=== PATIENT | female | born 1995 | race Caucasian/White ===

== ENCOUNTER 2017-02-04 09:16 | Inpatient (IN) | payer MEDICAID ==
[2017-02-04] MEDS ORDERED: Sodium Chloride 0.9% 2.5 ML Syringe FLUSH PRN (09:49)
[2017-02-04] MEDS ORDERED: Water For Irrigation,Sterile 1,000 ML Container IRR PRN (09:49)
[2017-02-04] MEDS ORDERED: Sodium Chloride 0.9% 10 ML Syringe FLUSH PRN (09:49)
[2017-02-04] MEDS ORDERED: Misoprostol 200 MCG Tab PO PRN (09:49)
[2017-02-04] MEDS ORDERED: Methylergonovine 0.2 MG/1 ML Amp IM PRN (09:49)
[2017-02-04] MEDS ORDERED: Carboprost Tromethamine 250 MCG/1 ML Amp IM PRN (09:49)
[2017-02-04] MEDS ORDERED: Lidocaine 1% 50 ML MDV INJECT PRN (09:49)
[2017-02-04] MEDS ORDERED: Oxytocin/Lactated Ringers 30 UNIT/500 ML BAG IV SCH ×2 (10:00→13:00)
[2017-02-04] MEDS: Lactated Ringers 1,000 ML IV SCH ×3 (10:55→14:10)
[2017-02-04] MEDS: Butorphanol 1 MG/ML SDV IVPUSH PRN ×2 (10:57→13:02)
--- NOTE | 2017-02-04 13:22 | PCM.PREANE ---
Preanesthetic Assessment - Anesthesia/Transfusion/Family Hx Anesthesia History: No Prior Anesthesia - Review of Systems General: No Symptoms Pulmonary: No Symptoms Cardiovascular: No Symptoms Gastrointestinal: No symptoms Neurological: No Symptoms Other: Reports: None - Physical Assessment Height: 5 ft 1 in Weight: 53.977 kg ASA Class: 2 Mental Status: Alert & Oriented x3 Airway Class: Mallampati = 2 Dentition: Reports: Normal Dentition Thyro-Mental Finger Breadths: 3 Mouth Opening Finger Breadths: 3 ROM/Head Extension: Full Lungs: Clear to auscultation, Normal respiratory effort Cardiovascular: Regular Rate, Regular Rhythm - Lab Values: Laboratory Last Values WBC 11.10 K/uL (4.0-11.0) H 02/04/17 10:12 RBC 4.79 M/uL (4.30-5.90) 02/04/17 10:12 Hgb 12.7 g/dL (12.0-16.0) 02/04/17 10:12 Hct 40.1 % (36.0-46.0) 02/04/17 10:12 MCV 83.7 fL (80.0-98.0) 02/04/17 10:12 MCH 26.5 pg (27.0-32.0) L 02/04/17 10:12 MCHC 31.7 g/dL (31.0-37.0) 02/04/17 10:12 RDW Std Deviation 48.6 fl (28.0-62.0) 02/04/17 10:12 RDW Coeff of Reece 16 % (11.0-15.0) H 02/04/17 10:12 Plt Count 233 K/uL (150-400) 02/04/17 10:12 MPV 10.60 fL (7.40-12.00) 02/04/17 10:12 Nucleated RBC % 0.0 /100WBC 02/04/17 10:12 Nucleated RBCs # 0 K/uL 02/04/17 10:12 Blood Type O POSITIVE 02/04/17 10:12 Antibody Screen NEGATIVE 02/04/17 10:12 - Allergies Allergies/Adverse Reactions: Allergies Allergy/AdvReac Type Severity Reaction Status Date / Time No Known Allergies Allergy Verified 02/04/17 09:46 - Acknowledgements Anesthesia Type Planned: Epidural Pt an Appropriate Candidate for the Planned Anesthesia: Yes Alternatives and Risks of Anesthesia Discussed w Pt/Guardian: Yes Pt/Guardian Understands and Agrees with Anesthesia Plan: Yes PreAnesthesia Questionnaire HEENT History: Reports: None Cardiovascular History: Reports: None Respiratory History: Reports: None Gastrointestinal History: Reports: GERD Genitourinary History: Reports: None FRENCH WEAVER History: Reports: : 1 Para: 0 LMP (Approximate): Musculoskeletal History: Reports: None Neurological History: Reports: None Psychiatric History: Reports: None Endocrine/Metabolic History: Reports: None Hematologic History: Reports: None Immunologic History: Reports: None Oncologic (Cancer) History: Reports: None Dermatologic History: Reports: None - Infectious Disease History Infectious Disease History: Reports: None - SUBSTANCE USE Smoking Status *Q: Never Smoker Recreational Drug Use History: No - HOME MEDS Home Medications: Home Meds PNV95/Ferrous Fumarate/FA [ Tablet] 02/04/17 [History] - CURRENT (IN HOUSE) MEDS Current Meds: Current Medications Butorphanol Tartrate (Stadol) 1 mg IVPUSH Q1H PRN PRN Reason: Pain Last Admin: 02/04/17 13:02 Dose: 1 mg Carboprost Tromethamine (Hemabate Ds) 250 mcg IM ASDIRECTED PRN PRN Reason: Post Hemorrhage Lactated Ringer's (Ringers, Lactated) 1,000 mls @ 150 mls/hr IV ASDIRECTED KELLI Last Admin: 02/04/17 10:55 Dose: 150 mls/hr Oxytocin/Lactated Ringer's (Pitocin In Lr 30 Units/500 Ml) 30 unit in 500 mls @ 2 mls/hr IV TITRATE KELLI; 2 MUNITS/MIN PRN Reason: Protocol Stop: 02/05/17 09:59 Oxytocin/Lactated Ringer's (Pitocin In Lr 30 Units/500 Ml) 30 unit in 500 mls @ 2 mls/hr IV TITRATE KELLI; 2 MUNITS/MIN PRN Reason: Protocol Last Admin: 02/04/17 13:06 Dose: 2 munits/min, 2 mls/hr Lidocaine HCl (Xylocaine 1%) 50 ml INJECT .ONCE PRN PRN Reason: Laceration repair Methylergonovine Maleate (Methergine) 0.2 mg IM ASDIRECTED PRN PRN Reason: Post Hemorrhage Misoprostol (Cytotec) 200 mcg PO .ONCE PRN PRN Reason: Post Hemorrhage Sodium Chloride (Saline Flush) 10 ml FLUSH ASDIRECTED PRN PRN Reason: Keep Vein Open Sodium Chloride (Saline Flush) 2.5 ml FLUSH ASDIRECTED PRN PRN Reason: Keep Vein Open Sterile Water (Sterile Water For Irrigation) 1,000 ml IRR ASDIRECTED PRN PRN Reason: delivery
[2017-02-04] MEDS ORDERED: Ropivacaine 0.2% 2 MG/ML 100 ML Infusion Bottle EPIDUR ONE (13:39)
[2017-02-04] MEDS ORDERED: fentaNYL 100 MCG/2 ML SDV ONE (13:39)
[2017-02-04] MEDS ORDERED: Ropivacaine HCl/PF 0 ML ONE (13:39)
[2017-02-04] MEDS ORDERED: fentaNYL 100 MCG/2 ML SDV EPIDUR ONE (13:39)
[2017-02-04] MEDS ORDERED: Bisacodyl 10 MG Supp RECTAL PRN (14:58)
[2017-02-04] MEDS ORDERED: Acetaminophen 500 MG Tab PO PRN ×2 (14:58)
[2017-02-04] MEDS ORDERED: Lanolin 100% Cream 7 GM Tube TOP PRN (14:58)
[2017-02-04] MEDS ORDERED: Docusate Sodium 100 MG Cap PO PRN (14:58)
[2017-02-04] MEDS ORDERED: Benzocaine/Menthol 20%-0.5% Spray 78 GM Cannister TOP PRN (14:58)
[2017-02-04] MEDS ORDERED: oxyCODONE 5 MG Tab PO PRN (14:58)
[2017-02-04] MEDS ORDERED: Ibuprofen 400 MG Tab PO PRN (14:58)
[2017-02-04] MEDS ORDERED: Ibuprofen 800 MG Tab PO PRN (14:58)
[2017-02-04] MEDS ORDERED: Witch Hazel Medicated Pads 40/Jar TOP PRN (14:58)
--- NOTE | 2017-02-04 23:32 | OR ---
SURGEON: Genevieve Vale MD DATE OF PROCEDURE: 02/04/2017 PREOPERATIVE DIAGNOSES: 1. Term at 38 weeks and 4 days. 2. Spontaneous labor. POSTOPERATIVE DIAGNOSES: 1. Term at 38 weeks and 4 days. 2. Spontaneous labor. 3. Delivered. PROCEDURE: 1. Spontaneous vaginal delivery. 2. Repair of labial laceration. ANESTHESIA: Local. ESTIMATED BLOOD LOSS: 100 mL. COMPLICATIONS: None. DISPOSITION: Mother and baby stable bonding in Labor and Delivery room. FINDINGS: Male infant, weight 3000 g, score 9 and 10 at 1 and 5 minutes respectively. Grossly normal placenta with three-vessel cord. Right labial laceration. BRIEF HISTORY: Corrine is a 22-year-old primigravida, who presented about 9:00 a.m. at 38 weeks and 4 days with a history of leakage of clear fluid since 6:30 a.m accompanied with irregular contractions. Denied vaginal bleeding and reported active fetus. GBS negative. Uncomplicated care. On admission, she was confirmed to be grossly ruptured and found to be 4 cm dilated, 70% effaced, station -3. With no significant cervical change,oxytocin augmentation was commenced four hours later.She received Stadol for pain management. She made a rather quick progress on oxytocin becoming dilated within an hour of starting oxytocin and with no epidural on board commenced active pushing. DESCRIPTION OF PROCEDURE: She had a spontaneous vaginal delivery of a live male in direct occipital anterior position, clear fluid, no nuchal cord at delivery. Anterior and posterior shoulders and the rest of baby was delivered without difficulty. Baby was vigorous and cried spontaneously at . Baby was delivered onto the maternal abdomen with the nursery nurse attending to him. Delayed cord clamping was performed and the cord was subsequently cut by the father of the baby. With delivery of the , oxytocin infusion was converted to titration for active management of third stage of labor. Cord blood was obtained. Placenta was delivered by controlled cord traction appeared to be complete and intact. Examination of the perineum revealed a right labial laceration which kept bleeding despite continual pressure so the area was infiltrated with 1% lidocaine and repaired with 2-0 Vicryl suture, hemostatic post repair. Uterine massage was performed. The uterus was found to be well contracted below the umbilicus. The patient tolerated the procedure well. Sponge, instrument, and needle counts were correct at the end of the delivery. ADUMVIV / MODL /[id number] MTDD
--- NOTE | 2017-02-05 08:38 | PCM.PNPP ---
[id number], urinating - Review of Systems General: Denies: Fever, Weakness, Malaise, Chills Pulmonary: Denies: shortness of breath, pleuritic chest pain, cough Cardiovascular: Denies: Chest Pain, Palpitations, Dyspnea on Exertion Gastrointestinal: Denies: Abdominal pain Genitourinary: Denies: dysuria, incontinence Neurological: Denies: Headache Psychiatric: Denies: depression, mood lability, anxiety - General Info Date of Service: 02/05/17 - Patient Data Vital Signs - most recent: Last Vital Signs Temp 37.2 C 02/05/17 02:00 Pulse 76 02/05/17 02:00 Resp 16 02/05/17 02:00 BP 98/60 02/05/17 02:00 Pulse Ox 96 02/05/17 02:00 Weight - most recent: 119 lb Lab Results - last 24 hrs: Laboratory Results - last 24 hr 02/04/17 02/04/17 02/05/17 Range/Units 10:12 10:12 04:18 WBC 11.10 H (4.0-11.0) K/uL RBC 4.79 (4.30-5.90) M/uL Hgb 12.7 10.9 L (12.0-16.0) g/dL Hct 40.1 34.2 L (36.0-46.0) % MCV 83.7 (80.0-98.0) fL MCH 26.5 L (27.0-32.0) pg MCHC 31.7 (31.0-37.0) g/dL RDW Std Deviation 48.6 (28.0-62.0) fl RDW Coeff of Reece 16 H (11.0-15.0) % Plt Count 233 (150-400) K/uL MPV 10.60 (7.40-12.00) fL Nucleated RBC % 0.0 /100WBC Nucleated RBCs # 0 K/uL Blood Type O POSITIVE Antibody Screen NEGATIVE Med Orders - Current: Current Medications Acetaminophen (Tylenol Extra Strength) 500 mg PO Q4H PRN PRN Reason: Pain Acetaminophen (Tylenol Extra Strength) 1,000 mg PO Q4H PRN PRN Reason: Pain Benzocaine/Menthol (Dermoplast Pain Relief 20%-0.5% [place]) 78 gm TOP ASDIRECTED PRN PRN Reason: Perineal Comfort Measure Last Admin: 02/04/17 15:39 Dose: 1 can Bisacodyl (Dulcolax) 10 mg RECTAL .ONCE PRN PRN Reason: Constipation Docusate Sodium (Colace) 100 mg PO BID PRN PRN Reason: Constipation Emollient Ointment (Lansinoh Hpa) 0 gm TOP ASDIRECTED PRN PRN Reason: Sore Nipples Last Admin: 02/04/17 15:39 Dose: 1 tube Ibuprofen (Motrin) 400 mg PO Q4H PRN PRN Reason: Pain Ibuprofen (Motrin) 800 mg PO Q6H PRN PRN Reason: Pain Last Admin: 02/04/17 15:39 Dose: 800 mg Oxycodone HCl (Oxycodone) 5 mg PO Q2H PRN PRN Reason: Pain Witch Koki (Tucks) 1 pad TOP ASDIRECTED PRN PRN Reason: comfort care Last Admin: 02/04/17 15:39 Dose: 1 tub Discontinued Medications Butorphanol Tartrate (Stadol) 1 mg IVPUSH Q1H PRN PRN Reason: Pain Last Admin: 02/04/17 13:02 Dose: 1 mg Carboprost Tromethamine (Hemabate Ds) 250 mcg IM ASDIRECTED PRN PRN Reason: Post Hemorrhage Fentanyl (Sublimaze) Confirm Administered Dose 100 mcg .ROUTE .STK-MED ONE Stop: 02/04/17 13:40 Fentanyl (Sublimaze) 0 mcg EPIDUR .STK-MED ONE Stop: 02/04/17 13:40 Lactated Ringer's (Ringers, Lactated) 1,000 mls @ 150 mls/hr IV ASDIRECTED KELLI Last Admin: 02/04/17 14:10 Dose: 150 mls/hr Oxytocin/Lactated Ringer's (Pitocin In Lr 30 Units/500 Ml) 30 unit in 500 mls @ 2 mls/hr IV TITRATE KELLI; 2 MUNITS/MIN PRN Reason: Protocol Stop: 02/05/17 09:59 Oxytocin/Lactated Ringer's (Pitocin In Lr 30 Units/500 Ml) 30 unit in 500 mls @ 2 mls/hr IV TITRATE KELLI; 2 MUNITS/MIN PRN Reason: Protocol Last Titration: 02/04/17 14:16 Dose: 999 munits/min, 999 mls/hr Ropivacaine (Naropin 0.2%) Confirm Administered Dose 100 mls @ as directed .ROUTE .SpinPunch ONE Stop: 02/04/17 13:40 Lidocaine HCl (Xylocaine 1%) 50 ml INJECT .ONCE PRN PRN Reason: Laceration repair Last Admin: 02/04/17 15:40 Dose: 50 ml Methylergonovine Maleate (Methergine) 0.2 mg IM ASDIRECTED PRN PRN Reason: Post Hemorrhage Misoprostol (Cytotec) 200 mcg PO .ONCE PRN PRN Reason: Post Hemorrhage Ropivacaine (Naropin 0.2%) 0 mg EPIDUR .SpinPunch ONE Stop: 02/04/17 13:40 Sodium Chloride (Saline Flush) 10 ml FLUSH ASDIRECTED PRN PRN Reason: Keep Vein Open Sodium Chloride (Saline Flush) 2.5 ml FLUSH ASDIRECTED PRN PRN Reason: Keep Vein Open Sterile Water (Sterile Water For Irrigation) 1,000 ml IRR ASDIRECTED PRN PRN Reason: delivery Last Admin: 02/04/17 15:38 Dose: 1,000 ml - Interaction Disposition, : in Room with Family Infant Interaction: Holding Infant Feeding: Breastfed Infant; Nursed Well Support Person: Significant Other - Recovery Exam Fundal Tone: Firm Fundal Level: 2 Fingerbreadths Below Umbilicus Fundal Placement: Midline Lochia Amount: Scant Lochia Color: Rubra/Red Perineum Description: Intact, Minimal Bruising/Swelling Other Perinuem Description: little labial laceration repaired Episiotomy/Laceration: Approximated Bladder Status: Voiding Urinary Elimination: Voided - Exam General: alert, oriented Lungs: Clear to auscultation, Normal respiratory effort Cardiovascular: Regular Rate, Regular Rhythm Abdomen: bowel sounds present, soft, no tenderness, no distension Extremities: no edema Skin: warm Psy/Mental Status: alert, normal affect, normal mood - Problem List & Annotations (1) Vaginal delivery SNOMED Code(s): 781492836 Code(s): O80 - ENCOUNTER FOR FULL-TERM UNCOMPLICATED DELIVERY Status: Acute Current Visit: Yes - Problem List Review Problem List Initiated/Reviewed/Updated: Yes - My Orders Last 24 Hours: My Active Orders 02/04/17 09:50 Heart Tones [RC] CONTINUOUS Non Stress Test [RC] PER UNIT ROUTINE May Shower [RC] ASDIRECTED Notify Provider [RC] PRN Up ad Christine [RC] ASDIRECTED Vaginal Exam [RC] PRN Vital Signs [RC] PER UNIT ROUTINE 02/04/17 14:58 Patient Status [ADT] Routine May Shower [RC] ASDIRECTED Up ad Christine [RC] ASDIRECTED Vital Signs [RC] PER UNIT ROUTINE Acetaminophen [Tylenol Extra Strength] 1,000 mg PO Q4H PRN Acetaminophen [Tylenol Extra Strength] 500 mg PO Q4H PRN Benzocaine/Menthol [Dermoplast Pain Relief 20%-0.5% [place]] 78 gm TOP ASDIRECTED PRN Bisacodyl [Dulcolax] 10 mg RECTAL .ONCE PRN Docusate Sodium [Colace] 100 mg PO BID PRN Ibuprofen [Motrin] 400 mg PO Q4H PRN Ibuprofen [Motrin] 800 mg PO Q6H PRN Lanolin [Lansinoh HPA] See Dose Instructions TOP ASDIRECTED PRN Witch Koki [Tucks] 1 pad TOP ASDIRECTED PRN oxyCODONE 5 mg PO Q2H PRN Assess Lochia [WOMSER] Per Unit Routine Assess Uterine Involution [WOMSER] Per Unit Routine Breast Pump [WOMSER] Per Unit Routine Peripheral IV Discontinue [OM.PC] Routine Resuscitation Status Routine 02/04/17 14:59 Perineal Care [OM.PC] Per Unit Routine 02/04/17 Dinner Regular Diet [DIET] - Assessment Assessment:: PPD#1 s/p , doing well and clinically stable for discharge today - Plan Plan:: Discharge instructions reviewed Nothing in the vagina for 6 weeks Bleeding and infection precautions reviewed Continue PNV Follow in the clinic in 6 weeks
[2017-02-05 08:51] VITALS: BP 102/59
== END 2017-02-05 15:45 | disposition home or self-care (01) | DRG 775 ==
LOC: MW.OBCHECK 09:16 → MW.OB 09:38 → MW.OBCHECK 10:42 → OBSVTOIN 14:14 → MW.OB 16:24
PROVIDERS: ADMIT Obstetrics & Gynecology; ATTEND Obstetrics & Gynecology
PROC: 10E0XZZ Delivery of Products of Conception, External Approach (ICD-10-PCS; principal; 2017-02-04)
PROC: 0HQ9XZZ Repair Perineum Skin, External Approach (ICD-10-PCS; 2017-02-04)
DX: O42.02 Full-term premature rupture of membranes, onset of labor within 24 hours of rupture (principal); O70.0 First degree perineal laceration during delivery; Z3A.38 38 weeks gestation of pregnancy; Z37.0 Single live birth
CPT/HCPCS: 36415; 59025; 85014; 85018; 85027; 86850; 86900; 86901; A9270-GY; J0595; J2795; J3010; J7120